=== PATIENT | female | born 1995 | race Two or more races ===

== ENCOUNTER 2018-05-16 17:18 | Emergency (ER) | payer OTHER ==
--- NOTE | 2018-05-16 17:56 | EDPHY ---
General - History Smoking Status: Never smoked Time Seen by Provider: 05/16/18 17:54 Narrative: CLINICAL IMPRESSION: Left ankle pain and swelling, cold exposure ASSESSMENT/PLAN: Patient is a 23-year-old female with no significant medical history who presents with complaint of left ankle swelling, bruising and blister after a long run on Tuesday and prolonged icing. Patient is nontoxic-appearing, she is in no acute distress on arrival. Patient with x-ray obtained prior to arrival at the [facility], reportedly negative. I have very low suspicion for traumatic injury as there was no mechanism to explain for fracture, dislocation or other traumatic injury. Patient had ice on her ankle for a prolonged period of time which is when she noticed the discoloration and blister formation at that exact site. I suspect her symptoms are secondary to cold exposure. There was no evidence of full-thickness burn, cellulitis, compartment syndrome, DVT or neurovascular compromise. The area was cleansed, antibiotic ointment and a dressing were placed on it. Patient has been training for a marathon, we recommended rest and wound care. The patient does not have a primary care provider, I provided a referral for her and she understands the importance of follow-up. Return precautions discussed-patient to return to the emergency Department for significantly worsening or uncontrolled pain, significant swelling, numbness or tingling of the extremity, paleness or coolness of her digits, redness, concerns of infection, fever or for any other concerning symptom. The patient verbalizes understanding and she is in agreement with this plan. DIFFERENTIAL DX: Differential diagnosis includes but not limited to traumatic injury, DVT, cold injury, contusion, sprain, fracture, dislocation ED COURSE: 1805: Case discussed with Dr. Santos CHIEF COMPLAINT: Left ankle swelling, bruising and blister HPI: Patient is a 23-year-old female with no significant medical history who presents to the emergency department with atraumatic left ankle swelling, bruising and blister. Patient reports she went for a run on Tuesday, after the run she noticed some discomfort of her generalized left ankle. She has been icing it, ice it for a prolonged period of time yesterday when she started to no some discoloration at the site that she was icing as well as a small blister. When she woke up this morning she noticed a blister that appearing to be getting larger throughout the day. She went to [facility] at the [facility] where she had a reportedly negative x-ray, they sent her home and compression with no further instructions. Patient is mostly concerned about the blister and the amount of pain that she is having. She denies any traumatic injury or impact to the area. No history of injury of this ankle. She denies any foot pain or calf pain. She reports that she has noted some mild redness around the area however mostly bruising. It has been intermittently swollen and intermittently painful. There are times when she can walk without any discomfort at all. She is up-to-date on her vaccinations, she does not have a primary care provider locally. PAST MEDICAL HISTORY: Denies Pertinent Past Surgical History: Denies Family History: Noncontributory Social History: Denies alcohol use, illicit drug use or cigarette smoking ROS: A full 10 point review of systems was negative except for those mentioned in HPI. PHYSICAL EXAM: General Appearance: Patient is well-appearing, she is in no acute distress. HENT: Normocephalic, atraumatic. External ears are normal. Nares are clear. Oropharynx is clear and mucosa is moist. Eyes: PERRLA, EOMI intact. Conjunctiva pink, no pallor or injection. Neck: Supple, nontender, no lymphadenopathy, no midline pain, FROM, no meningismus. Respiratory: There are no retractions, lungs are clear to auscultation. Cardiac: Regular rate and rhythm, no murmurs or gallops. Gastrointestinal: Abdomen is soft, nontender, bowel sounds normal, no masses/ hernia, no rigidity, guarding or focal peritoneal findings. Skin: Warm, dry, no rashes, no nodules on palpation. Upper Extremities: Intact distal pulses, Full range of motion intact, no tenderness, no ecchymosis or edema. Upper extremities bilaterally unremarkable. Lower Extremities: Left lower extremity reveals approximately 4 cm circular area of ecchymosis superior to the medial malleolus with associated tenderness to palpation. There is faint erythema surrounding however no associated calor. There is what appears to be a blister that has been popped overlying the inferior portion. There is no fluctuance. She is not tender along her Achilles tendon, she has no tenderness in her foot. Negative Homans, no calf tenderness bilaterally. Intact distal pulses. Right lower extremity unremarkable. MEDICAL DECISION MAKING: Patient was seen independently. Secondary supervising physician at time of evaluation was Dr. Santos, he also evaluated this patient. Diagnosis: Left ankle pain and swelling, cold exposure. New, requires workup Summary: See Assessment and Plan for summary of ED visit Clinical lab tests: Not applicable. Independent visualization of images, tracing, or specimens: Not applicable. Decision to obtain medical records or history from someone other than the patient: No Review / Summarize previous medical records: Yes Discussed patient with another provider: Yes, Dr. Santos Patient Progress: Stable, discharge. (Martha Mcfarland) I did evaluate this patient independently. We discussed care of her burn. She does have some blistering. We also had a long discussion about her ankle sprain. She is negative x-rayed an outside facility. She asked multi times about treatment options would help her heal faster so that she could run in a marathon who he on Tuesday. I told her that I denies this that I would advise rest and elevation and traditional care. She is to about steroid injection which I told her not indicated. She also lost a running in very types of braces which I discouraged (Alok Santos) - Objective Vital Signs: Initial Vital Signs Temperature (C) 36.4 C 05/16/18 17:34 Heart Rate 77 05/16/18 17:34 Respiratory Rate 17 05/16/18 17:34 Blood Pressure 117/81 H 05/16/18 17:34 O2 Sat (%) 98 05/16/18 17:34 O2 Delivery Mode Room Air Allergies/Adverse Reactions: No Known Allergies Allergy (Unverified 05/16/18 17:34) Home Medications: Medication Instructions Recorded NK [No Known Home Meds] 05/16/18 Departure - Departure Disposition: Home, Routine, Self-Care Clinical Impression: Ankle pain, left, Cold exposure Condition: Good Instructions: Swollen Joint (ED) Additional Instructions: DISCHARGE INSTRUCTIONS FROM YOUR DOCTOR Thank you for visiting our emergency department today. Please keep in mind that discharge from the emergency department does not mean that there is nothing wrong - it simply means that we have not identified an emergency condition that requires further evaluation or treatment in the hospital. You should always plan to follow up with primary care for re-evaluation of your condition in the next 2-3 days. It is very important that you establish care with a primary care provider as I would like you to be seen next week for follow-up. Please keep the blister clean and dry, do not pop it if it reaccumulates. Please apply antibiotic ointment and a dry dressing until healed. Wear compression as needed for comfort. Avoid running long distance until your feeling better. For pain control: You may take Tylenol, I recommend 500-1000 mg every 6-8 hours as needed. Take with food and a full glass of water. Stop taking if this is upsetting her stomach. Do not exceed 4000 mg in a 24 hr period. You may also take ibuprofen, recommend 400 mg every 6 hr. Take with food and a full glass of water. Stop taking if this upsets her stomach. Do not exceed 2400 mg in a 24 hr period. People present with illnesses and injuries in different ways, and it is always possible that we have missed something. You may always return for re-evaluation if symptoms worsen or if they are not improving or if you develop new/different symptoms. Again, thank you for choosing our emergency department. We hope that you feel better. Referrals: Lewis Cabrera DO [Doctor of Osteopathy] - As per Instructions (Please establish care with a primary care provider while you are living in the area. [facility]
[2018-05-16 19:04] VITALS: BP 126/76
== END 2018-05-16 19:02 | disposition home or self-care (01) ==
DX: M25.572 Pain in left ankle and joints of left foot (principal); X31.XXXA Exposure to excessive natural cold, initial encounter; Y92.9 Unspecified place or not applicable; Y99.9 Unspecified external cause status; Y93.9 Activity, unspecified